=== PATIENT | male | born 1985 | race Asian ===

== ENCOUNTER 2017-02-20 03:55 | Emergency (ER) | payer OTHER ==
[~2017-02-20] VITALS: Ht 175.3 cm; Wt 71.2 kg
[2017-02-20 04:00] VITALS: BP 140/92; PULSE 78; TEMP 36.6; O2SAT 96; Ht 175.3 cm; Wt 71.2 kg
[2017-02-20] MEDS ORDERED: AMOX875T PO (04:14)
[2017-02-20] MEDS ORDERED: AMOXICIL/CLAVU 875MG HOME PACK PO ONE (04:15)
--- NOTE | 2017-02-21 02:57 | EMERGENCY ROOM VISIT NOTE ---
ED Visit Note First contact with patient: 04:03 CHIEF COMPLAINT: Toothache HISTORY OF PRESENT ILLNESS: This 31-year-old male patient presented to the emergency department with a progressive toothache for past 3 to 4 days. The patient believes it is coming from a right lower tooth. The pain is now steady and severe and radiates to the face. The patient does not have a dentist appointment set up. They rate their pain a 8/10 and the ibuprofen and Tylenol they have been taking has not relieved the pain. Denies facial swelling or fever. The patient denies any discharge from the mouth. REVIEW OF SYSTEMS: A 6 system review of systems was completed with positives and pertinent negatives listed in the HPI. ALLERGIES: No known medication allergies MEDICATIONS: No chronic medications PMH: Otherwise healthy SOCIAL HISTORY: Lives locally PHYSICAL EXAM: Vitals are noted on the nurse's note and reviewed by myself. Vital signs stable. GENERAL: male, in no acute distress, nondiaphoretic, well-developed well- nourished. Mouth: The right lower first molar is tender on percussion tooth is very carious and the gum is swollen and tender around it, without any discharge or signs of an abscess. The remainder of the pharynx and tonsils are without erythema, edema, or exudate. The airway is patent. There is no facial swelling , cervical or submandibular lymphadenopathy. The patient appears uncomfortable and in pain. The patient has overall good dental hygiene. EARS: External auditory canals clear, tympanic membranes pearly garcia without erythema or effusion bilaterally. HEART: Regular rate and rhythm without murmur gallop or rub LUNG: Clear to auscultation bilateral ED COURSE: Physical exam and history were performed. Nursing notes and EMR were reviewed. The patient has pain of a right lower molar. He will be given a course of Pen-Vee K and instructions to follow with her dentist as soon as possible for definitive care. He is otherwise invited back to ER with any new, worsening, or concerning symptoms. Current/Historical Medications Scheduled Amoxicillin & Pot Clavulanate (Augmentin 875-125 mg), 1 TAB PO BID Allergies Coded Allergies: Buckwheat (Verified Allergy, Unknown, HIVES, 02/20/17) WITH GI INVOLVEMENT TOO Vital Signs Date Time Temp Pulse Resp B/P (MAP) Pulse Ox O2 Delivery O2 Flow Rate FiO2 02/20/17 04:00 36.6 78 18 140/92 96 Room Air Departure Information Impression Primary Impression: Pain, dental Dispostion Home / Self-Care Condition GOOD Prescriptions Amoxicillin & Pot Clavulanate (Augmentin 875-125 mg) 1 Tab Tab 1 TAB PO BID for 9 Days, #18 TAB Prov: Yousif Jordan PA-C 02/20/17 Forms HOME CARE DOCUMENTATION FORM, IMPORTANT VISIT INFORMATION Patient Instructions My [facility] Additional Instructions You were seen and evaluated today on an emergency basis only. This is not a substitute for, or an effort to provide, complete comprehensive medical care. It is not possible to recognize and treat all injuries or illnesses in a single emergency department visit. For this reason it is recommended that you followup with a dentist as soon as possible for definitive care. Amoxicillin Clavulanate (Augmentin) 875mg: Take one pill twice daily for 10 days for your infection. All antibiotics can cause diarrhea. If this occurs and you feel worse or it does not resolve in 1-2 days follow up with your doctor or return to the Emergency Department as this could be signs of serious underlying problems. Any medication can cause an allergic reaction, stop the pills immediately and return to the ER for rash, hives, breathing difficulties, or swelling. For baseline pain relief you may alternate ibuprofen and acetaminophen every 4 hours for pain control. Take 600 mg ibuprofen (Advil) and then 4 hours later take 1000 mg acetaminophen (Tylenol). Do not take more than 3000 mg acetaminophen in a single day. You are welcome to return to the emergency department anytime with new, worsening, or concerning symptoms.
== END 2017-02-20 04:18 | disposition home or self-care (01) ==
LOC: C.EDB 03:56
DX: K08.89 Other specified disorders of teeth and supporting structures (principal)